=== PATIENT | female | born 1955 | race African-American/Black ===

== ENCOUNTER → 2016-11-21 | Day surgery (SDC) | payer MEDICARE, OTHER ==
[~2016-11-21] MED LIST: ASPI-1035 PO; METF500T4 PO; PRED10TA PO; SERT50TA PO; TEMA30CA PO; insulin lantus SUBCUT
== END | disposition home or self-care (01) ==
LOC: RADANGIO 13:10
PROVIDERS: ATTEND Internal Medicine Rheumatology
DX: M06.851 Other specified rheumatoid arthritis, right hip (principal); M60.851 Other myositis, right thigh; M85.859 Other specified disorders of bone density and structure, unspecified thigh
CPT/HCPCS: 36569; 73502; 73552; 76937; 77001; C1725

== ENCOUNTER 2016-11-22 06:12 | Emergency (ER) | payer MEDICARE, OTHER ==
[~2016-11-22] VITALS: Ht 170.2 cm; Wt 85.0 kg
[~2016-11-22 06:12] MED LIST changes: -ASPI-1035 PO; +ASPI-1159 PO
[2016-11-22 08:33] VITALS: BP 134/71
== END 2016-11-22 09:37 | disposition home or self-care (01) ==
LOC: ER 06:15
DX: Z45.2 Encounter for adjustment and management of vascular access device (principal); E11.9 Type 2 diabetes mellitus without complications; M19.90 Unspecified osteoarthritis, unspecified site; M32.9 Systemic lupus erythematosus, unspecified; Z79.4 Long term (current) use of insulin; Z79.82 Long term (current) use of aspirin; Z96.659 Presence of unspecified artificial knee joint
CPT/HCPCS: 36569; 71010; 76937; 77001; 99285; C1725; J7040; 99284

== ENCOUNTER → 2017-06-04 | Day surgery (SDC) | payer MEDICARE, OTHER ==
[~2017-06-04] MED LIST changes: +SODIUM BICARBONATE 4% (2.4MEQ) 5ML VIAL IV ONE
== END | disposition home or self-care (01) ==
LOC: RAD 08:52
PROVIDERS: ATTEND Internal Medicine Rheumatology
DX: M06.80 Other specified rheumatoid arthritis, unspecified site (principal)
CPT/HCPCS: 36569; 76937; 77001; C1725; J3490

== ENCOUNTER 2017-06-06 14:09 | Emergency (ER) | payer MEDICARE, MEDICAID ==
[~2017-06-06] VITALS: Ht 165.1 cm; Wt 93.0 kg
[~2017-06-06 14:09] MED LIST changes: -SODIUM BICARBONATE 4% (2.4MEQ) 5ML VIAL IV ONE
[2017-06-06 20:57] LABS: BASOPHILS % 1.1 % (0.0-2.0); EOSINOPHILS % 0.3 % (0.0-5.0); HEMATOCRIT. 38.2 % (36.0-48.0); HEMOGLOBIN. 12.7 g/dL (12.0-16.0); LYMPHOCYTES % 20.5 % (20.0-50.0); MEAN CORPUSCULAR HEMOGLOBIN 32.2 pg (28.0-32.0); MONOCYTES % 7.4 % (2.0-8.0); NEUTROPHILS % 70.7 % (40.0-76.0); PLATELET 238 x1000/uL (130-400); RED BLOOD CELL COUNT 3.94 mill/uL (4.2-5.4); RED CELL DISTRIBUTION WIDTH 13.7 % (11.6-14.6)
[2017-06-06 21:05] LABS: PROTHROMBIN TIME 10.1 sec (9.4-11.6)
[2017-06-06 21:06] LABS: CARBON DIOXIDE 29 mEq/L (21-32); CHLORIDE 103 mEq/L (98-107)
[2017-06-06 21:11] LABS: TROPONIN I < 0.02 ng/mL (0.00-0.04)
[2017-06-06 22:45] VITALS: BP 146/72
== END 2017-06-06 22:48 | disposition home or self-care (01) ==
LOC: ER 15:19
DX: R07.9 Chest pain, unspecified (principal); E11.9 Type 2 diabetes mellitus without complications; Z79.82 Long term (current) use of aspirin; Z79.4 Long term (current) use of insulin
CPT/HCPCS: 36415; 71010; 80053; 82962; 83880; 84484; 85025; 85610; 93005; 99285

== ENCOUNTER → 2017-07-20 | Outpatient (CLI) | payer MEDICARE, MEDICAID ==
[~2017-07-20] MED LIST changes: +LIDOCAINE HCL 1% 20ML VIAL (Pyxis) INJ ONE; +SODIUM BICARBONATE 4% (2.4MEQ) 5ML VIAL IV ONE
== END | disposition home or self-care (01) ==
LOC: RAD 10:01
PROVIDERS: ATTEND Internal Medicine Rheumatology
DX: Z45.2 Encounter for adjustment and management of vascular access device (principal); Z98.890 Other specified postprocedural states
CPT/HCPCS: 36569; 76937; 77001; C1725; C1751; C1769; J3490

== ENCOUNTER 2018-12-15 11:29 | Inpatient (IN) | payer MEDICARE, MEDICAID ==
[~2018-12-15] VITALS: Ht 167.6 cm; Wt 90.7 kg
[~2018-12-15 11:29] MED LIST changes: -ASPI-1159 PO; +ASPI-1393 PO; -LIDOCAINE HCL 1% 20ML VIAL (Pyxis) INJ ONE; +METF-414 PO; -METF500T4 PO; -SODIUM BICARBONATE 4% (2.4MEQ) 5ML VIAL IV ONE
[2018-12-15] MEDS ORDERED: HYDROCODONE/ACETAMINOPHEN 10/325MG TABLET PO ONE (12:30)
[2018-12-15 12:32] LABS: BASOPHILS % 1.1 % (0.0-2.0); EOSINOPHILS % 0.6 % (0.0-5.0); HEMATOCRIT. 42.5 % (36.0-48.0); HEMOGLOBIN. 14.3 g/dL (12.0-16.0); LYMPHOCYTES % 22.3 % (20.0-50.0); MEAN CORPUSCULAR HEMOGLOBIN 32.5 pg (28.0-32.0); MEAN CORPUSCULAR VOLUME 96.3 fL (81.0-99.0); MEAN PLATELET VOLUME 8.6 fl (7.4-10.4); MONOCYTES % 5.5 % (2.0-8.0); NEUTROPHILS % 70.5 % (40.0-76.0); PLATELET 237 x1000/uL (130-400); RED BLOOD CELL COUNT 4.41 mill/uL (4.2-5.4); RED CELL DISTRIBUTION WIDTH 13.6 % (11.6-14.6)
[2018-12-15 12:38] LABS: CHLORIDE 103 mEq/L (98-107)
[2018-12-15] MEDS ORDERED: CLONIDINE 0.2MG TABLET PO ONE (14:00)
[2018-12-15] MEDS ORDERED: IOHEXOL-350 100 ML BOTTLE ONE (15:57)
[2018-12-15] MEDS ORDERED: ENOXAPARIN 100MG/ML SYR SUBCUT ONE (17:30)
[2018-12-15 23:15] VITALS: BP 118/85
[2018-12-16] MEDS ORDERED: MAGNESIUM/ALUMINUM HYDROXIDE/SIMETHICONE 30ML UDC PO PRN (01:30)
[2018-12-16] MEDS ORDERED: ACETAMINOPHEN 325MG TABLET PO PRN (01:30)
[2018-12-16] MEDS ORDERED: DOCUSATE SODIUM 100MG CAPSULE PO PRN (01:30)
[2018-12-16] MEDS ORDERED: ONDANSETRON HCL 4MG/2ML INJ IV PRN (01:30)
[2018-12-16] MEDS: DEXT 5%/0.45% NACL 1000ML 1,000 ML IV SCH ×2 (02:11→19:40)
[2018-12-16] MEDS ORDERED: DEXTROSE 50% WATER 50ML SYRINGE IV PRN (02:15)
[2018-12-16 04:00] VITALS: BP 145/99
[2018-12-16] MEDS: HYDROCODONE/ACETAMINOPHEN 5/325MG TABLET PO PRN ×3 (05:12→21:08)
[2018-12-16] MEDS: BLOOD SUGAR DIAGNOSTIC STRIP TEST SCH ×3 (05:16→17:09)
[2018-12-16] MEDS: INSULIN LISPRO 100 UNITS/ML SUBCUT SCH ×3 (05:26→17:09)
[2018-12-16 06:48] LABS: BASOPHILS % 0.8 % (0.0-2.0); EOSINOPHILS % 0.5 % (0.0-5.0); HEMATOCRIT. 39.2 % (36.0-48.0); HEMOGLOBIN. 13.2 g/dL (12.0-16.0); LYMPHOCYTES % 25.6 % (20.0-50.0); MEAN CORPUSCULAR HEMOGLOBIN 32.4 pg (28.0-32.0); MEAN CORPUSCULAR VOLUME 95.7 fL (81.0-99.0); MEAN PLATELET VOLUME 9.3 fl (7.4-10.4); MONOCYTES % 6.8 % (2.0-8.0); NEUTROPHILS % 66.3 % (40.0-76.0); PLATELET 195 x1000/uL (130-400); RED BLOOD CELL COUNT 4.09 mill/uL (4.2-5.4); RED CELL DISTRIBUTION WIDTH 13.6 % (11.6-14.6)
[2018-12-16 06:54] LABS: CHLORIDE 105 mEq/L (98-107)
[2018-12-16 07:05] LABS: C REACTIVE PROTEIN QUANT 0.6 mg/L (0.0-3.0)
[2018-12-16 07:07] LABS: T4 FREE 0.85 ng/dL (0.76-1.46)
[2018-12-16 07:10] LABS: CREATINE KINASE MB FRACTION 1.1 ng/mL (0.5-3.6)
[2018-12-16 08:00] VITALS: BP_SYST 140; BP_SYST 240; BP_DIAS 78
[2018-12-16] MEDS: METFORMIN HCL 500MG TABLET PO SCH ×2 (08:19→17:07)
[2018-12-16] MEDS: LEFLUNOMIDE 20MG TABLET PO SCH (08:19)
[2018-12-16] MEDS: INSULIN GLARGINE UD 100 UNITS/ML SYR SUBCUT SCH (09:55)
[2018-12-16] MEDS ORDERED: INSULIN GLARGINE UD 100 UNITS/ML SYR SUBCUT SCH (10:00)
[2018-12-16] MEDS: AMLODIPINE 5MG TABLET PO SCH (11:20)
[2018-12-16 12:00] VITALS: BP 139/76
[2018-12-16 15:39] LABS: CREATINE KINASE MB FRACTION < 1.0 ng/mL (0.5-3.6)
[2018-12-16 16:00] VITALS: BP 152/96
[2018-12-16 20:00] VITALS: BP 134/85
[2018-12-16] MEDS: LOSARTAN POTASSIUM 50 MG TABLET PO SCH (21:05)
[2018-12-16] MEDS: ATORVASTATIN CALCIUM 20MG TABLET PO SCH (21:05)
[2018-12-16] MEDS: OMEPRAZOLE 20MG CAPSULE EXTENDED RELEASE PO SCH (21:12)
[2018-12-16 22:10] LABS: EOSINOPHILS % 0.9 % (0.0-5.0); HEMATOCRIT. 39.2 % (36.0-48.0); HEMOGLOBIN. 13.1 g/dL (12.0-16.0); LYMPHOCYTES % 25.8 % (20.0-50.0); MEAN CORPUSCULAR HEMOGLOBIN 32.1 pg (28.0-32.0); MEAN CORPUSCULAR VOLUME 95.9 fL (81.0-99.0); MEAN PLATELET VOLUME 8.8 fl (7.4-10.4); MONOCYTES % 8.3 % (2.0-8.0); PLATELET 212 x1000/uL (130-400); RED BLOOD CELL COUNT 4.09 mill/uL (4.2-5.4); RED CELL DISTRIBUTION WIDTH 13.8 % (11.6-14.6)
[2018-12-17] VITALS: BP 133/73
[2018-12-17] MEDS: BLOOD SUGAR DIAGNOSTIC STRIP TEST SCH ×4 (00:26→18:09)
[2018-12-17] MEDS: INSULIN LISPRO 100 UNITS/ML SUBCUT SCH ×4 (00:35→18:27)
[2018-12-17] MEDS: HYDROCODONE/ACETAMINOPHEN 5/325MG TABLET PO PRN (00:55)
[2018-12-17 04:00] VITALS: BP 142/70
[2018-12-17 06:47] LABS: CHLORIDE 107 mEq/L (98-107)
[2018-12-17] MEDS: OMEPRAZOLE 20MG CAPSULE EXTENDED RELEASE PO SCH (07:04)
[2018-12-17] MEDS ORDERED: SODIUM BICARBONATE 4% (2.4MEQ) 5ML VIAL IV ONE (07:33)
[2018-12-17] MEDS ORDERED: LIDOCAINE HCL 1% 20ML VIAL (Pyxis) INJ ONE (07:34)
[2018-12-17] MEDS: HYDROMORPHONE HCL/PF 2MG/ML CPJ IV PRN ×3 (08:58→18:15)
[2018-12-17] MEDS: METFORMIN HCL 500MG TABLET PO SCH ×2 (09:55→18:31)
[2018-12-17] MEDS: AMLODIPINE 5MG TABLET PO SCH (09:55)
[2018-12-17] MEDS: LOSARTAN POTASSIUM 50 MG TABLET PO SCH (09:56)
[2018-12-17] MEDS: LEFLUNOMIDE 20MG TABLET PO SCH (09:56)
[2018-12-17] MEDS: INSULIN GLARGINE UD 100 UNITS/ML SYR SUBCUT SCH (10:00)
[2018-12-17 12:00] VITALS: BP 128/73
[2018-12-17] MEDS: DEXT 5%/0.45% NACL 1000ML 1,000 ML IV SCH ×2 (12:20→14:59)
[2018-12-17 16:00] VITALS: BP 113/44
[2018-12-17] MEDS ORDERED: NAPH15DR8 EACHEYE (17:01)
[2018-12-17 20:00] VITALS: BP 101/60
[2018-12-17] MEDS: ATORVASTATIN CALCIUM 20MG TABLET PO SCH (21:06)
[2018-12-17] MEDS: LORAZEPAM 2MG/ML CPJ IV PRN (21:06)
[2018-12-17] MEDS: ENOXAPARIN 30MG/0.3ML SYR SUBCUT SCH (21:09)
[2018-12-18] VITALS: BP 120/71
[2018-12-18] MEDS: BLOOD SUGAR DIAGNOSTIC STRIP TEST SCH ×4 (00:17→18:00)
[2018-12-18] MEDS: HYDROMORPHONE HCL/PF 2MG/ML CPJ IV PRN ×4 (00:37→21:05)
[2018-12-18] MEDS: INSULIN LISPRO 100 UNITS/ML SUBCUT SCH ×4 (01:09→18:34)
[2018-12-18 04:00] VITALS: BP 127/73
[2018-12-18] MEDS: DEXT 5%/0.45% NACL 1000ML 1,000 ML IV SCH ×2 (05:06→23:24)
[2018-12-18] MEDS: OMEPRAZOLE 20MG CAPSULE EXTENDED RELEASE PO SCH (06:17)
[2018-12-18 07:01] LABS: BASOPHILS % 0.6 % (0.0-2.0); EOSINOPHILS % 0.9 % (0.0-5.0); HEMATOCRIT. 37.3 % (36.0-48.0); HEMOGLOBIN. 12.2 g/dL (12.0-16.0); LYMPHOCYTES % 26.4 % (20.0-50.0); MEAN CORPUSCULAR HEMOGLOBIN 31.9 pg (28.0-32.0); MEAN PLATELET VOLUME 8.4 fl (7.4-10.4); MONOCYTES % 8.7 % (2.0-8.0); NEUTROPHILS % 63.4 % (40.0-76.0); PLATELET 210 x1000/uL (130-400); RED BLOOD CELL COUNT 3.84 mill/uL (4.2-5.4); RED CELL DISTRIBUTION WIDTH 13.6 % (11.6-14.6)
[2018-12-18 07:02] LABS: CHLORIDE 107 mEq/L (98-107)
[2018-12-18 08:00] VITALS: BP 128/80
[2018-12-18] MEDS: METFORMIN HCL 500MG TABLET PO SCH ×2 (08:11→18:11)
[2018-12-18] MEDS: AMLODIPINE 5MG TABLET PO SCH (08:13)
[2018-12-18] MEDS: LOSARTAN POTASSIUM 50 MG TABLET PO SCH (08:13)
[2018-12-18] MEDS: ENOXAPARIN 30MG/0.3ML SYR SUBCUT SCH ×2 (08:14→21:05)
[2018-12-18] MEDS: LEFLUNOMIDE 20MG TABLET PO SCH (09:51)
[2018-12-18] MEDS: INSULIN GLARGINE UD 100 UNITS/ML SYR SUBCUT SCH (09:55)
[2018-12-18 11:23] VITALS: BP 124/72
[2018-12-18 16:00] VITALS: BP 96/63
[2018-12-18 20:00] VITALS: BP 149/83
[2018-12-18] MEDS: ATORVASTATIN CALCIUM 20MG TABLET PO SCH (21:05)
[2018-12-18] MEDS: LORAZEPAM 2MG/ML CPJ IV PRN (23:21)
[2018-12-19] VITALS: BP 118/73
[2018-12-19] MEDS: BLOOD SUGAR DIAGNOSTIC STRIP TEST SCH ×3 (00:37→12:29)
[2018-12-19 04:00] VITALS: BP 132/70
[2018-12-19] MEDS: HYDROMORPHONE HCL/PF 2MG/ML CPJ IV PRN ×2 (04:32→10:49)
[2018-12-19] MEDS: INSULIN LISPRO 100 UNITS/ML SUBCUT SCH ×3 (06:00→12:00)
[2018-12-19] MEDS: OMEPRAZOLE 20MG CAPSULE EXTENDED RELEASE PO SCH (06:06)
[2018-12-19 06:50] LABS: EOSINOPHILS % 0.6 % (0.0-5.0); HEMATOCRIT. 37.6 % (36.0-48.0); HEMOGLOBIN. 12.7 g/dL (12.0-16.0); LYMPHOCYTES % 25.1 % (20.0-50.0); MEAN CORPUSCULAR HEMOGLOBIN 32.5 pg (28.0-32.0); MEAN PLATELET VOLUME 8.7 fl (7.4-10.4); MONOCYTES % 7.3 % (2.0-8.0); PLATELET 209 x1000/uL (130-400); RED BLOOD CELL COUNT 3.91 mill/uL (4.2-5.4); RED CELL DISTRIBUTION WIDTH 13.3 % (11.6-14.6)
[2018-12-19 07:11] LABS: CHLORIDE 108 mEq/L (98-107)
[2018-12-19 08:00] VITALS: BP 156/81
[2018-12-19] MEDS: ENOXAPARIN 30MG/0.3ML SYR SUBCUT SCH (09:27)
[2018-12-19] MEDS: METFORMIN HCL 500MG TABLET PO SCH (09:28)
[2018-12-19] MEDS: AMLODIPINE 5MG TABLET PO SCH (09:28)
[2018-12-19] MEDS: LOSARTAN POTASSIUM 50 MG TABLET PO SCH (09:28)
[2018-12-19] MEDS: LEFLUNOMIDE 20MG TABLET PO SCH (09:29)
[2018-12-19] MEDS: INSULIN GLARGINE UD 100 UNITS/ML SYR SUBCUT SCH (09:31)
[2018-12-19 12:00] VITALS: BP 119/65
[2018-12-19] MEDS: HYDROCODONE/ACETAMINOPHEN 5/325MG TABLET PO PRN (13:16)
[2018-12-19] MEDS: DEXT 5%/0.45% NACL 1000ML 1,000 ML IV SCH (15:47)
[2018-12-19 16:00] VITALS: BP 102/48
[2018-12-19 19:48] VITALS: BP 129/87
[2018-12-21 08:16] LABS: DRVVT LA 33.3 sec (0.0-47.0); LUPUS ANTICOAG INTERPRETATION Comment: (.)
[2018-12-21 13:14] LABS: ANTI-CARDIOLIPIN AB IGA < 9 APL U/mL (0-11); ANTI-CARDIOLIPIN AB IGG < 9 GPL U/mL (0-14); ANTI-CARDIOLIPIN AB IGM 9 MPL U/mL (0-12)
== END 2018-12-19 20:35 | disposition home or self-care (01) | DRG 292 ==
LOC: ER 11:29 → 8WST 13:56 → ENRESERV 20:14
PROVIDERS: ADMIT Internal Medicine Rheumatology; ATTEND Internal Medicine Rheumatology
PROC: 02HV33Z Insertion of Infusion Device into Superior Vena Cava, Percutaneous Approach (ICD-10-PCS; principal; 2018-12-17)
PROC: B548ZZA Ultrasonography of Superior Vena Cava, Guidance (ICD-10-PCS; 2018-12-17)
PROC: B5181ZA Fluoroscopy of Superior Vena Cava using Low Osmolar Contrast, Guidance (ICD-10-PCS; 2018-12-17)
DX: I11.0 Hypertensive heart disease with heart failure (principal); E46 Unspecified protein-calorie malnutrition; D68.61 Antiphospholipid syndrome; R07.89 Other chest pain; E11.65 Type 2 diabetes mellitus with hyperglycemia; I25.119 Atherosclerotic heart disease of native coronary artery with unspecified angina pectoris; E11.40 Type 2 diabetes mellitus with diabetic neuropathy, unspecified; E66.9 Obesity, unspecified; E78.00 Pure hypercholesterolemia, unspecified; E78.5 Hyperlipidemia, unspecified; I50.9 Heart failure, unspecified; M19.019 Primary osteoarthritis, unspecified shoulder; Z96.659 Presence of unspecified artificial knee joint; E55.9 Vitamin D deficiency, unspecified; M51.36 Other intervertebral disc degeneration, lumbar region; M06.9 Rheumatoid arthritis, unspecified; L93.0 Discoid lupus erythematosus; L29.9 Pruritus, unspecified; I77.6 Arteritis, unspecified; I73.00 Raynaud's syndrome without gangrene; M75.02 Adhesive capsulitis of left shoulder; M75.01 Adhesive capsulitis of right shoulder; R32 Unspecified urinary incontinence; B19.20 Unspecified viral hepatitis C without hepatic coma; M35.00 Sjogren syndrome, unspecified; Z79.4 Long term (current) use of insulin; Z82.49 Family history of ischemic heart disease and other diseases of the circulatory system; Z83.3 Family history of diabetes mellitus; Z91.14 Patient's other noncompliance with medication regimen; Z68.32 Body mass index [BMI] 32.0-32.9, adult; Z79.899 Other long term (current) drug therapy; Z79.82 Long term (current) use of aspirin; Z88.8 Allergy status to other drugs, medicaments and biological substances
CPT/HCPCS: 36415; 36573; 71045; 71250; 80048; 82533; 82553; 82962; 83036; 83880; 84439; 84443; 84484; 84550; 84681; 85379; 85613; 85651; 85732; 86140; 86147; 93005; 96372; 99291; C1725; J1170; J1650; J1815; J2060; J3490; J7050; Q9967

== ENCOUNTER 2019-03-27 10:46 | Emergency (ER) | payer MEDICARE, MEDICAID ==
[~2019-03-27] VITALS: Ht 167.6 cm; Wt 84.0 kg
[~2019-03-27 10:46] MED LIST changes: +NAPH15DR8 EACHEYE
[2019-03-27] MEDS ORDERED: KETOROLAC 60MG/2ML VIAL IM ONE (11:30)
[2019-03-27] MEDS ORDERED: LIDOCAINE HCL 1% 20ML VIAL (Pyxis) INJ INFIL ONE (11:30)
[2019-03-27] MEDS ORDERED: FLUCONAZOLE 100MG TABLET PO ONE (12:15)
[2019-03-27 12:43] VITALS: BP 153/82
== END 2019-03-27 13:21 | disposition home or self-care (01) ==
LOC: ER 10:46
DX: L02.212 Cutaneous abscess of back [any part, except buttock and flank] (principal); B37.3 Candidiasis of vulva and vagina; E11.9 Type 2 diabetes mellitus without complications; M19.90 Unspecified osteoarthritis, unspecified site; Z96.659 Presence of unspecified artificial knee joint; Z98.890 Other specified postprocedural states; Z79.899 Other long term (current) drug therapy; Z88.8 Allergy status to other drugs, medicaments and biological substances
CPT/HCPCS: 10060; 96372; 99283; J1885; J3490

== ENCOUNTER 2022-02-08 17:56 | Emergency (ER) | payer MEDICARE, MEDICAID ==
[~2022-02-08] VITALS: Ht 170.2 cm; Wt 102.0 kg
[~2022-02-08 17:56] MED LIST changes: -ASPI-1393 PO; +ASPI-1497 PO
[2022-02-08] MEDS ORDERED: TRAMADOL 50MG TABLET PO ONE (18:30)
[2022-02-08] MEDS ORDERED: IBUPROFEN 400MG TABLET PO ONE (18:30)
[2022-02-08] MEDS ORDERED: HYDR-4001 MT (19:23)
[2022-02-08] MEDS ORDERED: IBUP-2028 MT (19:23)
[2022-02-08] MEDS ORDERED: MORPHINE SULFATE 2 MG/ML CPJ (NOT FOR IM USE) IV ONE (19:30)
[2022-02-08] MEDS ORDERED: KETOROLAC 60MG/2ML VIAL IM ONE (19:45)
[2022-02-08] MEDS ORDERED: HYDROCODONE/ACETAMINOPHEN 5/325MG TABLET PO ONE (19:45)
[2022-02-08 20:30] VITALS: BP 155/73
== END 2022-02-08 20:40 | disposition home or self-care (01) ==
LOC: ER 17:56
DX: S42.032A Displaced fracture of lateral end of left clavicle, initial encounter for closed fracture (principal); S00.01XA Abrasion of scalp, initial encounter; E11.9 Type 2 diabetes mellitus without complications; M32.9 Systemic lupus erythematosus, unspecified; M19.90 Unspecified osteoarthritis, unspecified site; Z96.659 Presence of unspecified artificial knee joint; Z88.8 Allergy status to other drugs, medicaments and biological substances; Z79.4 Long term (current) use of insulin; Z79.82 Long term (current) use of aspirin; Z86.73 Personal history of transient ischemic attack (TIA), and cerebral infarction without residual deficits; W10.8XXA Fall (on) (from) other stairs and steps, initial encounter; Y93.89 Activity, other specified; Y92.018 Other place in single-family (private) house as the place of occurrence of the external cause
CPT/HCPCS: 70450; 73030; 73060; 96372; 99284; J1885

== ENCOUNTER 2022-07-24 11:07 | Emergency (ER) | payer MEDICARE, MEDICAID ==
[~2022-07-24] VITALS: Ht 167.6 cm; Wt 86.0 kg
[~2022-07-24 11:07] MED LIST changes: +HYDR-4001 MT; +IBUP-2028 MT
[2022-07-24] MEDS ORDERED: HYDROCODONE/ACETAMINOPHEN 5/325MG TABLET PO STA (16:02)
[2022-07-24 16:26] VITALS: BP 148/97
[2022-07-24] MEDS ORDERED: NAPR500T7 PO (18:17)
[2022-07-24] MEDS ORDERED: HYDR-4001 MT (18:17)
== END 2022-07-24 18:41 | disposition home or self-care (01) ==
LOC: ER 11:07
DX: M54.50 Low back pain, unspecified (principal); G89.29 Other chronic pain; Z87.828 Personal history of other (healed) physical injury and trauma; Z98.1 Arthrodesis status; Z79.82 Long term (current) use of aspirin; Z88.8 Allergy status to other drugs, medicaments and biological substances
CPT/HCPCS: 72100; 72131; 99284